=== PATIENT | male | born 1950 | race Caucasian/White ===

== ENCOUNTER 2016-11-22 18:12 | Emergency (ER) | payer MEDICARE, OTHER ==
[~2016-11-22] VITALS: Ht 182.9 cm; Wt 95.5 kg
[~2016-11-22 18:12] MED LIST: ACIFEX PO; AMOX1TAB61 PO; ATOR20TA PO; ATOR40TA PO; ATOR40TA59 PO; CEFU250T PO; CHOL2000 PO; CIPR500T94 PO; DOCU100T11 PO; FERR-26 PO; FURO40TA4 PO; INSU100I13 SQ; INSU100I17 SQ; INSU100I27 SQ; INSU100V13 SQ; INSU100V31 SQ; LEVO150T5 PO; LISI1TAB7 PO; LISI40TA PO; MAG DELAY64 MG PO; METF500T4 PO; NADO20TA PO; OMEP20TA63 PO; OXYC-323 PO; OXYC10TA PO; Promethazine Hcl/Codeine PO; RIFA550T PO; SIMV20TA PO; SPIR100T2 PO; SPIR25TA3 PO; TEMA15CA PO; [UNRECOGNIZED DRUG - CODE] IV
[2016-11-22] MEDS ORDERED: FUROSEMIDE 40 MG/4 ML VIAL IVP ONE (18:30)
[2016-11-22] MEDS ORDERED: ASPIRIN 81 MG TAB.CHEW PO ONE (18:30)
--- NOTE | 2016-11-22 18:39 | EKG ---
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
[2016-11-22 18:47] LABS: BASO % 0 % (0-3); EOS # 0.1 x10^3/uL (0.0-0.7); EOS % 1 % (0-3); HEMATOCRIT 39.2 % (39.0-53.0); HEMOGLOBIN 13.7 g/dL (13.0-17.5); LYMPH # 0.9 x10^3/uL (1.0-4.8); LYMPH % 9 % (24-48); MEAN CORPUSCULAR HEMOGLOBIN 32 pg (25-35); MEAN CORPUSCULAR HGB CONC 35 g/dL (31-37); MEAN CORPUSCULAR VOLUME 90 fL (79-100); MONO % 10 % (0-9); NEUT # 7.6 x10^3uL (1.8-7.7); NEUT % 79 % (31-73); PLATELET COUNT 135 x10^3/uL (140-400); RED BLOOD COUNT 4.33 x10^6/uL (4.30-5.70); RED CELL DISTRIBUTION WIDTH 17.3 % (11.5-14.5); WHITE BLOOD COUNT 9.6 x10^3/uL (4.0-11.0)
[2016-11-22 19:11] LABS: ALBUMIN 3.5 g/dL (3.4-5.0); CALCIUM 8.7 mg/dL (8.5-10.1); CREATININE 1.3 mg/dL (0.7-1.3); GFR 54.9; POTASSIUM 5.3 mmol/L (3.5-5.1); TOTAL BILIRUBIN 1.2 mg/dL (0.2-1.0)
--- NOTE | 2016-11-22 19:13 | RAD ---
PROCEDURE CT chest without intravenous contrast. HISTORY Shortness of air, effusion. TECHNIQUE Noncontrast CT of the chest was performed. Exposure: One or more of the following individualized dose reduction techniques were utilized for this examination: 1. Automated exposure control. 2. Adjustment of the mA and/or kV according to patient size. 3. Use of iterative reconstruction technique. COMPARISON CT chest June 06, 2016. FINDINGS Visualized thyroid is small, but symmetric. Trachea and mainstem bronchi appear patent. No convincing mediastinal lymphadenopathy is seen. Thoracic aorta have normal caliber. Coronary artery calcifications are present. Heart and pericardium are unremarkable. Right lung appears clear. There is a large left pleural effusion which has increased in size from previous study. Much of left lung demonstrates consolidation, favored to be atelectasis, although it would be difficult to exclude airspace disease, nodule, or mass within the suspected atelectatic lung. Moderate-severe gynecomastia is present. There is a mildly distracted left posterolateral 7th rib fracture, age indeterminate. Images of the upper abdomen demonstrate nodular appearance to the liver, compatible with cirrhosis. Ascites is seen. IMPRESSION 1. Large left pleural effusion, increased in size from previous study. Exact cause is not identified, but a consideration would be hepatic hydrothorax given the stigmata of cirrhosis. Electronically signed by: Gerson Haji MD (Nov 22, 2016 19:11:01)
--- NOTE | 2016-11-22 19:28 | PHYS DOC ---
General Chief Complaint: CHEST PAIN Stated Complaint: CHESP PAIN/SOA Time Seen by MD: 18:17 Source: patient, old records Exam Limitations: no limitations Problems: History of Present Illness Initial Comments Pt is 66/M to ED via EMS c/o CP. Pt states L CP (pressure) began 1715 today while watching TV. Moderate, no exacerbating/relieving factors noted. Also with SOB, diaphoresis, L arm tingling/numbness no n/v. No prearrival treatment, sx resolved without treatment pt arrived asymptomatic. ED VS: 98.5, 80, 26, 118/74, 98% RA Pt has h/o ESLD has weekly thoracentesis/paracentesis, is scheduled for this Sunday at [facility]. No prior history of chest pain. Pt says his abdominal distension/discomfort as well as his cough/SOB are at baseline and not affected by CP symptoms. Timing/Duration: 1-3 hours Severity: moderate Modifying Factors: improves with other Associated Symptoms: chest pain, diaphoresis, malaise, shortness of breath, other Allergies: Coded Allergies: Iodinated Contrast Media - IV Dye (Verified Allergy, Intermediate, ) chicken derived (Verified Allergy, Intermediate, 06/20/16) iodine (Verified Allergy, Intermediate, 06/20/16) shellfish derived (Verified Allergy, Intermediate, 08/19/15) Past Medical History Medical History: other (DM, GERD, hypothyroid, end stage liver disease on transplant list follows [facility]) Surgical History: noncontributory Social History Smoker: non-smoker Alcohol: none Drugs: none Review of Systems Constitutional: denies chills, diaphoresis malaise Respiratory: see HPI shortness of breath Cardiovascular: see HPI Gastrointestinal: see HPIdenies diarrhea, denies vomiting Musculoskeletal: denies back pain, denies joint swelling, denies neck pain Psychiatric/Neurological: denies headache, denies numbness, denies paresthesia Physical Exam General Appearance: no apparent distress Eyes: bilateral eye EOMI, bilateral eye PERRL, bilateral eye scleral icterus Ear, Nose, Throat: hearing grossly normal, normal ENT inspection Respiratory: chest non-tender, other (BS absent L lower 1/2, coarse at apex, R is CTA no resp distress) Cardiovascular: normal peripheral pulses, regular rate, rhythm Gastrointestinal: soft (distended/tender diffusely no focality no rebound or mass) Extremities: normal inspection, no pedal edema Neurologic/Psychiatric: 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 HISTORY Shortness of air, effusion. TECHNIQUE Noncontrast CT of the chest was performed. Exposure: One or more of the following individualized dose reduction techniques were utilized for this examination: 1. Automated exposure control. 2. Adjustment of the mA and/or kV according to patient size. 3. Use of iterative reconstruction technique. COMPARISON CT chest June 06, 2016. FINDINGS Visualized thyroid is small, but symmetric. Trachea and mainstem bronchi appear patent. No convincing mediastinal lymphadenopathy is seen. Thoracic aorta have normal caliber. Coronary artery calcifications are present. Heart and pericardium are unremarkable. Right lung appears clear. There is a large left pleural effusion which has increased in size from previous study. Much of left lung demonstrates consolidation, favored to be atelectasis, although it would be difficult to exclude airspace disease, nodule, or mass within the suspected atelectatic lung. Moderate-severe gynecomastia is present. There is a mildly distracted left posterolateral 7th rib fracture, age indeterminate. Images of the upper abdomen demonstrate nodular appearance to the liver, compatible with cirrhosis. Ascites is seen. IMPRESSION 1. Large left pleural effusion, increased in size from previous study. Exact cause is not identified, but a consideration would be hepatic hydrothorax given the stigmata of cirrhosis. Electronically signed by: Gerson Hylton MD (Nov 22, 2016 19:11:01) DICTATED AND SIGNED BY: GERSON HYLTON MD DATE: 11/22/161910 CC: CAMMIE HARRIS MD; EB FRANCO DO ~ Pertinent labs: plt 135, na 126, K+ 5.3, BUN 32, Cr 1.3, glu 175, t. 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 Due to comorbidities, requested pt be transferred to [facility]. 1953: Pt discussed with Dr Anusha Reyes [facility] who accepts tele/obs admission to [facility]/ [facility] [place]. IMPRESSIONS: Chest pain ESLD w/ascites and effusion hyponatremia hyperkalemia Departure Time of Disposition: 20:01 Disposition: 05 XFER OTHER Diagnosis: chest pain, ESLD Condition: STABLE Additional Instructions: EMS transfer to [facility] for obs/tele admission Dr Anusha Reyes is accepting. EB FRANCO DO Nov 22, 2016 19:28
[2016-11-22 20:40] VITALS: BP 106/75
[2016-11-22 21:11] LABS: AMPHETAMINE/METHAMPHETAMINE NEG (NEG); BARBITURATES NEG (NEG); BENZODIAZEPINES POS (NEG); CANNABINOIDS NEG (NEG); COCAINE NEG (NEG); METHADONE NEG (NEG); OPIATES NEG (NEG); PHENCYCLIDINE NEG (NEG)
[2016-11-22 21:29] LABS: BILIRUBIN,URINE NEG (NEG); CLARITY,URINE HAZY; COLOR,URINE YELLOW; GLUCOSE,URINE NEG (NEG); UROBILINOGEN,URINE 0.2 mg/dL (0.2 mg/dL)
[2016-11-22 21:30] LABS: BACTERIA,URINE 0 /HPF (0-FEW); NITRITE,URINE NEG (NEG); RBC,URINE 0 /HPF (0-2); SQUAMOUS EPITHELIAL CELL,UR FEW /LPF; WBC,URINE OCC /HPF (0-4)
--- NOTE | 2016-11-23 08:44 | RAD ---
Chest, 2 views, 11/22/2016: History: Chest pain, shortness of breath Comparison is made to a study from 10/12/2016. There is a prominent opacity in the left lower chest compatible with a large pleural effusion. Similar findings were present on the previous study. There is considerable underlying atelectasis in the left parahilar region. The left heart border is obscured by the pleural fluid. The pulmonary vascularity appears to be within normal limits. The right chest is clear. No right-sided pleural fluid is evident. There is deformity of the posterolateral aspect of the right seventh rib compatible with a slightly displaced rib fracture. This appears to have been present in retrospect on the 10/12/2016 study but was not evident on older exams. There is also a fracture of the left seventh rib laterally. These fractures were not present on the 06/06/2016 CT study. IMPRESSION: 1. Large ongoing or recurrent left pleural effusion with considerable underlying atelectasis. 2. Subacute bilateral seventh rib fractures.
== END 2016-11-22 20:51 | disposition short-term general hospital (02) ==
LOC: ER 18:12
DX: R07.89 Other chest pain (principal); E87.1 Hypo-osmolality and hyponatremia; E87.5 Hyperkalemia; K21.9 Gastro-esophageal reflux disease without esophagitis; E11.9 Type 2 diabetes mellitus without complications; K72.90 Hepatic failure, unspecified without coma; Z91.041 Radiographic dye allergy status; Z91.013 Allergy to seafood; Z91.018 Allergy to other foods
CPT/HCPCS: 36415; 71020; 71250; 80053; 81001; 82550; 83880; 84484; 85027; 85610; 85730; 93005; 99285; G0481

== ENCOUNTER 2017-02-10 11:56 | Emergency (ER) | payer MEDICARE, OTHER ==
[~2017-02-10] VITALS: Ht 182.9 cm; Wt 81.6 kg
[~2017-02-10 11:56] MED LIST changes: -RIFA550T PO; +RIFA550T4 PO; +[UNRECOGNIZED DRUG - CODE] IV; -[UNRECOGNIZED DRUG - CODE] IV
[2017-02-10 12:21] LABS: BASO # 0.1 x10^3/uL (0.0-0.2); BASO % 1 % (0-3); EOS # 0.1 x10^3/uL (0.0-0.7); EOS % 1 % (0-3); HEMOGLOBIN 11.8 g/dL (13.0-17.5); LYMPH # 0.5 x10^3/uL (1.0-4.8); LYMPH % 7 % (24-48); MEAN CORPUSCULAR HEMOGLOBIN 32 pg (25-35); MEAN CORPUSCULAR HGB CONC 36 g/dL (31-37); MEAN CORPUSCULAR VOLUME 89 fL (79-100); MONO # 0.8 x10^3/uL (0.0-1.1); MONO % 12 % (0-9); NEUT # 5.1 x10^3uL (1.8-7.7); NEUT % 79 % (31-73); PLATELET COUNT 113 x10^3/uL (140-400); RED CELL DISTRIBUTION WIDTH 16.4 % (11.5-14.5); WHITE BLOOD COUNT 6.5 x10^3/uL (4.0-11.0)
[2017-02-10] MEDS ORDERED: IPRATRPIUM/ALBUTEROL 0.5/2.5MG 3 ML NEBU. NEB ONE (12:30)
--- NOTE | 2017-02-10 12:38 | RAD ---
Indication: Shortness of breath. Time of exam 12:24 PM Comparison is made with prior exam from 11/22/2016. Large left effusion persists. The right lung is clear. There is no pneumothorax. Impression: Similar appearance to prior exam from 11/22/2016 with continued large left pleural effusion.
[2017-02-10 12:41] LABS: ALBUMIN 3.2 g/dL (3.4-5.0); CALCIUM 8.5 mg/dL (8.5-10.1); CREATININE 1.4 mg/dL (0.7-1.3); DIRECT BILIRUBIN 0.2 mg/dL (0.0-0.2); GFR 50.4; POTASSIUM 4.9 mmol/L (3.5-5.1); TOTAL PROTEIN 6.1 g/dL (6.4-8.2)
--- NOTE | 2017-02-10 13:58 | PHYS DOC ---
Past History Past Medical History: Diabetes, GERD, Hypothyroid, Liver Disease Past Surgical History: Pneumothorax, Other Alcohol Use: None Drug Use: None Adult General Chief Complaint Chief Complaint: SHORTNESS OF BREATH HPI HPI 66-year-old male presenting to the emergency department today with worsening shortness of breath and a history of liver failure with a meld score in the low to mid 20s generally. He reports having a paracentesis on however over the past 2 days his abdomen has been increasingly distended with worsening shortness of breath and feels like there is "fluid on his lungs". Onset 2-3 days. Location lungs and abdomen. Duration intermittent. Worse with walking. Review of systems was positive for shortness of breath and abdominal distention. Negative for abdominal pain or chest pain. All other review of systems is negative unless otherwise noted in history of present illness. Pertinent physical exam findings show the patient has ecchymosis around the abdomen and generally over his body seems to bruise easily. Abdomen is soft and nontender. Patient has liver cirrhosis syndromic appearance. Abdomen is distended with fluid wave. Nontender without rebound tenderness. Lungs have crackles in the bases worse on the left than the right. ED course: 66-year-old male presenting to the emergency department with worsening fluid retention likely secondary to liver failure. Patient was saturating well resting in the exam room however when he exerts himself he gets quite short of breath. He has a relatively high meld score and is currently awaiting liver transplant. Labs were obtained and meld score calculated approximately similar to previous to his creatinine is slightly higher than previous. Given the patient's clinical presentation, the patient was then admitted to the [facility] as a direct admission for further evaluation workup and care. The patient likely will need both a paracentesis and thoracentesis. He was transferred by ambulance. Patient was comfortable with plan. Accepting dr. srinath richard. Review of Systems Review of Systems SEE ABOVE. Current Medications Current Medications Current Medications Medications (Trade) Dose Ordered Sig/Hermann Start Time Stop Time Status Last Admin Dose Admin Albuterol/ Ipratropium (Duoneb) 3 ml 1X ONCE 02/10/17 12:30 02/10/17 12:32 DC 02/10/17 12:35 3 ML Allergies Allergies Allergies Coded Allergies Type Severity Reaction Last Updated Verified Iodinated Contrast Media - IV Dye Allergy Intermediate 07/28/14 Yes chicken derived Allergy Intermediate 06/20/16 Yes iodine Allergy Intermediate 06/20/16 Yes shellfish derived Allergy Intermediate 08/19/15 Yes Physical Exam Physical Exam Constitutional: Well developed, well nourished, no acute distress, non-toxic appearance. HENT: Normocephalic, atraumatic, bilateral external ears normal, oropharynx moist, no oral exudates, nose normal. [] Eyes: PERRLA, EOMI, conjunctiva normal, no discharge. Neck: Normal range of motion, no tenderness, supple, no stridor. Cardiovascular:Heart rate regular rhythm, no murmur [] Lungs & Thorax: see above Abdomen: see above Skin: Warm, dry, no erythema, no rash. Back: No tenderness, no CVA tenderness. [] Extremities: No tenderness, no cyanosis, no clubbing, ROM intact, no edema. Neurologic: Alert and oriented X 3, normal motor function, normal sensory function, no focal deficits noted. [] Psychologic: Affect normal, judgement normal, mood normal. Current Patient Data Vital Signs Vital Signs Date Time Temp Pulse Resp B/P (MAP) Pulse Ox O2 Delivery O2 Flow Rate FiO2 02/10/17 13:02 92 16 96/70 (79) 99 Room Air 02/10/17 12:05 97.9 Lab Results Laboratory Tests Test 02/10/17 12:05 White Blood Count 6.5 x10^3/uL (4.0-11.0) Red Blood Count 3.70 x10^6/uL (4.30-5.70) L Hemoglobin 11.8 g/dL (13.0-17.5) L Hematocrit 33.0 % (39.0-53.0) L Mean Corpuscular Volume 89 fL (79-100) Mean Corpuscular Hemoglobin 32 pg (25-35) Mean Corpuscular Hemoglobin Concent 36 g/dL (31-37) Red Cell Distribution Width 16.4 % (11.5-14.5) H Platelet Count 113 x10^3/uL (140-400) L Neutrophils (%) (Auto) 79 % (31-73) H Lymphocytes (%) (Auto) 7 % (24-48) L Monocytes (%) (Auto) 12 % (0-9) H Eosinophils (%) (Auto) 1 % (0-3) Basophils (%) (Auto) 1 % (0-3) Neutrophils # (Auto) 5.1 x10^3uL (1.8-7.7) Lymphocytes # (Auto) 0.5 x10^3/uL (1.0-4.8) L Monocytes # (Auto) 0.8 x10^3/uL (0.0-1.1) Eosinophils # (Auto) 0.1 x10^3/uL (0.0-0.7) Basophils # (Auto) 0.1 x10^3/uL (0.0-0.2) Sodium Level 128 mmol/L (136-145) L Potassium Level 4.9 mmol/L (3.5-5.1) Chloride Level 95 mmol/L (98-107) L Carbon Dioxide Level 26 mmol/L (21-32) Anion Gap 7 (6-14) Blood Urea Nitrogen 33 mg/dL (8-26) H Creatinine 1.4 mg/dL (0.7-1.3) H Estimated GFR (Cockcroft-Gault) 50.4 Glucose Level 78 mg/dL (70-99) Calcium Level 8.5 mg/dL (8.5-10.1) Total Bilirubin 1.0 mg/dL (0.2-1.0) Direct Bilirubin 0.2 mg/dL (0.0-0.2) Aspartate Amino Transferase (AST) 35 U/L (15-37) Alanine Aminotransferase (ALT) 43 U/L (16-63) Alkaline Phosphatase 58 U/L (46-116) Troponin I Quantitative < 0.017 ng/mL (0-0.055) FJ-Cik-X-Type Natriuretic Peptide 332 pg/mL (0-124) H Total Protein 6.1 g/dL (6.4-8.2) L Albumin 3.2 g/dL (3.4-5.0) L Lipase 313 U/L (73-393) EKG EKG [] Radiology/Procedures Radiology/Procedures [] Course & Med Decision Making Course & Med Decision Making Pertinent Labs and Imaging studies reviewed. (See chart for details) [] Dragon Disclaimer Dragon Disclaimer This chart was dictated in whole or in part using Voice Recognition software in a busy, high-work load, and often noisy Emergency Department environment. It may contain unintended and wholly unrecognized errors or omissions. Departure Departure: Impression: Primary Impression: Liver failure Additional Impressions: Pleural effusion on left Shortness of breath Disposition: 02 XFER [facility] ([facility] Condition: STABLE Referrals: CAMMIE HARRIS MD (PCP) Problem Qualifiers Primary Impression: Liver failure Liver failure chronicity: subacute Hepatic coma status: without hepatic coma Qualified Codes: K72.00 - Acute and subacute hepatic failure without coma JACKY MENDOZA MD Feb 10, 2017 13:58
[2017-02-10 15:02] VITALS: BP 102/65
--- NOTE | 2017-02-10 16:20 | EKG ---
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
== END 2017-02-10 15:35 | disposition short-term general hospital (02) ==
LOC: ER 11:56
DX: K72.90 Hepatic failure, unspecified without coma (principal); J90 Pleural effusion, not elsewhere classified; K21.9 Gastro-esophageal reflux disease without esophagitis; E11.9 Type 2 diabetes mellitus without complications; E03.9 Hypothyroidism, unspecified; J95.811 Postprocedural pneumothorax; Z91.041 Radiographic dye allergy status; Z91.013 Allergy to seafood; Z91.018 Allergy to other foods
CPT/HCPCS: 36415; 71010; 80048; 80076; 83690; 83880; 84484; 85027; 85610; 85730; 93005; 94640; 99285; J7620

== ENCOUNTER 2018-04-07 15:35 | Inpatient (IN) | payer MEDICARE, OTHER ==
[~2018-04-07] VITALS: Ht 182.9 cm; Wt 83.9 kg
[~2018-04-07 15:35] MED LIST changes: -FERR-26 PO; +FERR325T14 PO; -METF500T4 PO; +METF500T5 PO; -SPIR100T2 PO; +SPIR100T4 PO; -SPIR25TA3 PO; +SPIR25TA5 PO; +VANC1.5P20 IV; -[UNRECOGNIZED DRUG - CODE] IV
--- NOTE | 2018-04-07 15:47 | ED.ADGEN ---
Past History Past Medical History: Diabetes, GERD, Hypothyroid, Liver Disease (GERMÁN MAYO MD) Past Medical History: Diabetes, GERD, High Cholesterol, Hypothyroid, Renal Failure (DEANNA FERNANDEZ DO) Past Surgical History: Pneumothorax, Other (GERMÁN MAYO MD) Past Surgical History Liver transplant, bile stent s/p bile leak, chest tube due to pneumothorax (DEANNA FERNANDEZ DO) Alcohol Use: None Drug Use: None (GERMÁN MAYO MD) Alcohol Use: None Drug Use: None (DEANNA FERNANDEZ DO) Adult General Chief Complaint Chief Complaint Lightheadedness shortness of breath abdominal pain after defecation (GERMÁN MAYO MD) HPI HPI Patient had a liver transplant May 2017 at . Two weeks after liver transplant , patient had episode of abdominal pain similar to his presenting complaint today that showed a bile leak and biliary infection. Since then, he was well until this afternoon 20 minutes prior to presentation when after defecating, he had sudden onset of lightheadedness with near syncope , abdominal pain, numbness in his hands and legs with shortness of breath. Patient denied any chest pain. EMS was called by his . Since then, his abdominal pain and shortness of breath has improved (GERMÁN MAYO MD) Review of Systems Review of Systems Constitutional: Denies fever or chills Eyes: Denies change in visual acuity, redness, or eye pain HENT: Denies nasal congestion or sore throat Respiratory: Denies cough or shortness of breath Cardiovascular: Denies chest pain or palpitations GI: with diffuse abdominal pain, nausea, no vomiting, bloody stools or diarrhea : Denies dysuria or hematuria Musculoskeletal: Denies back pain or joint pain Integument: Denies rash or skin lesions Neurologic: Denies headache, but with severe light headedness with numbness in all extremities Endocrine: Denies polyuria or polydipsia All other systems were reviewed and found to be within normal limits, except as documented in this note. (GERMÁN MAYO MD) Current Medications Current Medications Current Medications Medications (Trade) Dose Ordered Sig/Hermann Start Time Stop Time Status Last Admin Dose Admin Aspirin (Children'S Aspirin) 324 mg 1X ONCE 04/07/18 19:15 04/07/18 19:16 DC 04/07/18 19:25 324 MG Dextrose 12.5 gm PRN Q15MIN PRN 04/07/18 19:15 Insulin Human Lispro (HumaLOG) 0-5 UNITS TIDWMEALS 04/08/18 08:00 Ondansetron HCl (Zofran) 4 mg PRN Q8HRS PRN 04/07/18 19:15 Sodium Chloride 1,000 ml @ 100 mls/hr Q10H 04/07/18 19:30 (DEANNA FERNANDEZ DO) Allergies Allergies Allergies Coded Allergies Type Severity Reaction Last Updated Verified Iodinated Contrast Media - IV Dye Allergy Intermediate 07/28/14 Yes chicken derived Allergy Intermediate 06/20/16 Yes iodine Allergy Intermediate 06/20/16 Yes shellfish derived Allergy Intermediate 08/19/15 Yes (DEANNA FERNANDEZ DO) Physical Exam Physical Exam Constitutional: Well developed, well nourished, no acute distress, non-toxic appearance. HENT: Normocephalic, atraumatic, bilateral external ears normal, oropharynx moist, no oral exudates, nose normal. Eyes: PERRLA, EOMI, conjunctiva normal, no discharge. Neck: Normal range of motion, no tenderness, supple, no stridor. Cardiovascular:Heart rate regular rhythm, no murmur Lungs & Thorax: Bilateral breath sounds clear to auscultation Abdomen: Bowel sounds normal, soft, no tenderness, no masses, no pulsatile masses. Skin: Warm, dry, no erythema, no rash. Back: No tenderness, no CVA tenderness. Extremities: No tenderness, no cyanosis, no clubbing, ROM intact, no edema. Neurologic: Alert and oriented X 3, normal motor function, normal sensory function, no focal deficits noted. Gait normal Psychologic: Affect normal, judgement normal, mood normal. (GERMÁN MAYO MD) Physical Exam Constitutional: Well developed, well nourished, no acute distress, non-toxic appearance. [] HENT: Normocephalic, atraumatic, oropharynx moist, Eyes: PERRL, EOMI, conjunctiva normal, Neck: Normal range of motion, no tenderness, supple, no stridor. [] Cardiovascular: Heart rate regular rhythm, CR < 2 sec Lungs & Thorax: Bilateral breath sounds clear to auscultation, no wheezing or rales noted Abdomen: Soft, no tenderness, no masses, no pulsatile masses. [] Skin: Warm, dry, no erythema, no rash. [] Extremities: No tenderness, no cyanosis, ROM intact, no edema. [] Neurologic: Alert and oriented X 3, normal motor function, normal sensory function, no focal deficits noted. [] Psychologic: Affect normal, judgement normal, mood normal. [] (FERNANDEZ,DEANNA R DO) Current Patient Data Vital Signs Vital Signs Date Time Temp Pulse Resp B/P (MAP) Pulse Ox O2 Delivery O2 Flow Rate FiO2 04/07/18 18:39 76 16 125/71 (89) 98 Room Air 04/07/18 15:40 98.0 (FERNANDEZ,DEANNA R DO) Lab Results Laboratory Tests Test 04/07/18 16:30 04/07/18 16:40 04/07/18 17:30 White Blood Count 3.9 x10^3/uL (4.0-11.0) L Red Blood Count 3.83 x10^6/uL (4.30-5.70) L Hemoglobin 10.3 g/dL (13.0-17.5) L Hematocrit 28.9 % (39.0-53.0) L Mean Corpuscular Volume 75 fL (79-100) L Mean Corpuscular Hemoglobin 27 pg (25-35) Mean Corpuscular Hemoglobin Concent 36 g/dL (31-37) Red Cell Distribution Width 15.0 % (11.5-14.5) H Platelet Count 100 x10^3/uL (140-400) L Neutrophils (%) (Auto) 81 % (31-73) H Lymphocytes (%) (Auto) 9 % (24-48) L Monocytes (%) (Auto) 8 % (0-9) Eosinophils (%) (Auto) 1 % (0-3) Basophils (%) (Auto) 1 % (0-3) Neutrophils # (Auto) 3.2 x10^3uL (1.8-7.7) Lymphocytes # (Auto) 0.3 x10^3/uL (1.0-4.8) L Monocytes # (Auto) 0.3 x10^3/uL (0.0-1.1) Eosinophils # (Auto) 0.0 x10^3/uL (0.0-0.7) Basophils # (Auto) 0.0 x10^3/uL (0.0-0.2) Prothrombin Time 10.0 SEC (9.4-11.4) Prothrombin Time INR 1.0 (0.9-1.1) D-Dimer (Kelly) 1.65 mg/L (0.00-0.50) H Sodium Level 137 mmol/L (136-145) Potassium Level 4.8 mmol/L (3.5-5.1) Chloride Level 104 mmol/L (98-107) Carbon Dioxide Level 23 mmol/L (21-32) Anion Gap 10 (6-14) Blood Urea Nitrogen 29 mg/dL (8-26) H Creatinine 2.2 mg/dL (0.7-1.3) H Estimated GFR (Cockcroft-Gault) 29.8 BUN/Creatinine Ratio 13 (6-20) Glucose Level 278 mg/dL (70-99) H Calcium Level 8.6 mg/dL (8.5-10.1) Total Bilirubin 0.4 mg/dL (0.2-1.0) Aspartate Amino Transferase (AST) 25 U/L (15-37) Alanine Aminotransferase (ALT) 54 U/L (16-63) Alkaline Phosphatase 104 U/L (46-116) Troponin I Quantitative < 0.017 ng/mL (0-0.055) BJ-Aka-D-Type Natriuretic Peptide 300 pg/mL (0-124) H Total Protein 6.8 g/dL (6.4-8.2) Albumin 3.5 g/dL (3.4-5.0) Albumin/Globulin Ratio 1.1 (1.0-1.7) Lipase 169 U/L (73-393) Urine Collection Type Unknown Urine Color Yellow Urine Clarity Clear Urine pH 5.5 Urine Specific Sedley 1.015 Urine Protein 30 mg/dl (NEG-TRACE) Urine Glucose (UA) >=1000 mg/dL (NEG) Urine Ketones (Stick) Neg mg/dL (NEG) Urine Blood Neg (NEG) Urine Nitrite Neg (NEG) Urine Bilirubin Neg (NEG) Urine Urobilinogen Dipstick 0.2 mg/dL (0.2 mg/dL) Urine Leukocyte Esterase Neg (NEG) Urine RBC Occ /HPF (0-2) Urine WBC 1-4 /HPF (0-4) Urine Squamous Epithelial Cells Few /LPF Urine Bacteria 0 /HPF (0-FEW) Urine Hyaline Casts Few /HPF Urine Mucus Slight /LPF Stool Occult Blood Negative (NEG) (DEANNA FERNANDEZ DO) Lab Results Laboratory Tests Test 04/07/18 16:30 04/07/18 16:40 04/07/18 17:30 White Blood Count 3.9 x10^3/uL (4.0-11.0) L Red Blood Count 3.83 x10^6/uL (4.30-5.70) L Hemoglobin 10.3 g/dL (13.0-17.5) L Hematocrit 28.9 % (39.0-53.0) L Mean Corpuscular Volume 75 fL (79-100) L Mean Corpuscular Hemoglobin 27 pg (25-35) Mean Corpuscular Hemoglobin Concent 36 g/dL (31-37) Red Cell Distribution Width 15.0 % (11.5-14.5) H Platelet Count 100 x10^3/uL (140-400) L Neutrophils (%) (Auto) 81 % (31-73) H Lymphocytes (%) (Auto) 9 % (24-48) L Monocytes (%) (Auto) 8 % (0-9) Eosinophils (%) (Auto) 1 % (0-3) Basophils (%) (Auto) 1 % (0-3) Neutrophils # (Auto) 3.2 x10^3uL (1.8-7.7) Lymphocytes # (Auto) 0.3 x10^3/uL (1.0-4.8) L Monocytes # (Auto) 0.3 x10^3/uL (0.0-1.1) Eosinophils # (Auto) 0.0 x10^3/uL (0.0-0.7) Basophils # (Auto) 0.0 x10^3/uL (0.0-0.2) Prothrombin Time 10.0 SEC (9.4-11.4) Prothrombin Time INR 1.0 (0.9-1.1) D-Dimer (Kelly) 1.65 mg/L (0.00-0.50) H Sodium Level 137 mmol/L (136-145) Potassium Level 4.8 mmol/L (3.5-5.1) Chloride Level 104 mmol/L (98-107) Carbon Dioxide Level 23 mmol/L (21-32) Anion Gap 10 (6-14) Blood Urea Nitrogen 29 mg/dL (8-26) H Creatinine 2.2 mg/dL (0.7-1.3) H Estimated GFR (Cockcroft-Gault) 29.8 BUN/Creatinine Ratio 13 (6-20) Glucose Level 278 mg/dL (70-99) H Calcium Level 8.6 mg/dL (8.5-10.1) Total Bilirubin 0.4 mg/dL (0.2-1.0) Aspartate Amino Transferase (AST) 25 U/L (15-37) Alanine Aminotransferase (ALT) 54 U/L (16-63) Alkaline Phosphatase 104 U/L (46-116) Troponin I Quantitative < 0.017 ng/mL (0-0.055) HZ-Cdh-D-Type Natriuretic Peptide 300 pg/mL (0-124) H Total Protein 6.8 g/dL (6.4-8.2) Albumin 3.5 g/dL (3.4-5.0) Albumin/Globulin Ratio 1.1 (1.0-1.7) Lipase 169 U/L (73-393) Urine Collection Type Unknown Urine Color Yellow Urine Clarity Clear Urine pH 5.5 Urine Specific Sedley 1.015 Urine Protein 30 mg/dl (NEG-TRACE) Urine Glucose (UA) >=1000 mg/dL (NEG) Urine Ketones (Stick) Neg mg/dL (NEG) Urine Blood Neg (NEG) Urine Nitrite Neg (NEG) Urine Bilirubin Neg (NEG) Urine Urobilinogen Dipstick 0.2 mg/dL (0.2 mg/dL) Urine Leukocyte Esterase Neg (NEG) Urine RBC Occ /HPF (0-2) Urine WBC 1-4 /HPF (0-4) Urine Squamous Epithelial Cells Few /LPF Urine Bacteria 0 /HPF (0-FEW) Urine Hyaline Casts Few /HPF Urine Mucus Slight /LPF Stool Occult Blood Negative (NEG) (GERMÁN MAYO MD) EKG EKG [] (GERMÁN MAYO MD) EKG NSR at 72bpm, NO ST elevation, nonspecific t wave from 1926 at 04/07/18 (DEANNA FERNANDEZ DO) Radiology/Procedures Radiology/Procedures [address] [address] IMAGING REPORT Signed PATIENT: DEANNA GONZALEZ ACCOUNT: [id number] : 1950 LOCATION: ER AGE: 67 SEX: M EXAM STATUS: PRE ER ORD. PHYSICIAN: GERMÁN MAYO MD REASON: SOB PROCEDURE: CHEST AP ONLY KUB, CHEST AP ONLY Clinical History: short of breath with abd pain x 1 day, hx of liver transplant 2015 One view chest: Technique: AP view of the chest was obtained at 04/07/2018 3:59 PM. Comparison: February 10, 2017. Findings: The cardiomediastinal silhouette is normal. The pulmonary vasculature is normal. There is density in the left costophrenic angle. There is an old rib fracture on the right. Impression: Mild left effusion. End impression 1 view abdomen pelvis: There is air in portions the colon. There is a paucity small bowel gas. There is no free air. There are multiple surgical clips in the upper abdomen. IMPRESSION: Nonobstructive bowel gas pattern. Electronically signed by: Mita Owens III, MD (04/07/2018 4:11 PM) [facility] DICTATED AND SIGNED BY: MITA OWENS III, MD DATE: 04/07/18 1606 CC: CAMMIE HARRIS MD; GERMÁN MAYO MD ~ (GERMÁN MAYO MD) Radiology/Procedures KUB, CHEST AP ONLY Clinical History: short of breath with abd pain x 1 day, hx of liver transplant 2015 One view chest: Technique: AP view of the chest was obtained at 04/07/2018 3:59 PM. Comparison: February 10, 2017. Findings: The cardiomediastinal silhouette is normal. The pulmonary vasculature is normal. There is density in the left costophrenic angle. There is an old rib fracture on the right. Impression: Mild left effusion. End impression 1 view abdomen pelvis: There is air in portions the colon. There is a paucity small bowel gas. There is no free air. There are multiple surgical clips in the upper abdomen. IMPRESSION: Nonobstructive bowel gas pattern. Electronically signed by: Mita Owens III, MD (04/07/2018 4:11 PM) [facility] DICTATED AND SIGNED BY: MITA OWENS III, MD DATE: 04/07/18 1608 PROCEDURE: CT HEAD WO CONTRAST PQRS Compliance Statement: One or more of the following individualized dose reduction techniques were utilized for this examination: 1. Automated exposure control 2. Adjustment of the mA and/or kV according to patient size 3. Use of iterative reconstruction technique CT head without contrast 04/07/2018 7:05 PM INDICATION: Near syncope COMPARISON: CT head July 28, 2014 TECHNIQUE: Multiple axial CT images of the head were obtained from skull base through the vertex without intravenous contrast. FINDINGS: Head: Ventricles, sulci and basal cisterns are within normal limits. There is no hydrocephalus. Stock-white matter differentiation is normal. There is no acute intracranial hemorrhage. There is no mass, mass effect or midline shift. Posterior fossa is normal in appearance. Visualized portions of the orbits are normal. Paranasal sinuses are well aerated. Mastoid air cells are well aerated. Scalp and calvaria are normal. IMPRESSION: No acute intracranial hemorrhage. Electronically signed by: Rianna Garcia MD (04/07/2018 7:20 PM) [facility] (DEANNA FERNANDEZ DO) Course & Med Decision Making Course & Med Decision Making Patient presents with lightheadedness abdominal pain paresthesias after large bowel movement DDx-vasovagal reaction, Vasovagal syncope, Arrhythmia, hypotension, gas intestinal hemorrhage Patient was stable in the emergency department improved after observation. Labs remarkable for elevated BUN/Cr, hyperglycemia, elevated BNP, anemia. ECG and troponin showed no evidence of ACS. CXR and KUB unremarkable. D-dimer elevated V/Q scan ordered. 17:40 Patient is back to baseline without any complaints. Repeat abdominal exam is benign there is no tenderness. Rectal exam noted no melena. There is dark brown stool in the vault 18:[address] Fernandez for further disposition, V/Q scan pending. (GERMÁN MAYO MD) Course & Med Decision Making 1800- Signout received from Dr. Mayo for patient with near syncopal episode associated with defecation. Patient subsequently felt very short of breath and had numbness and tingling. Patient does have significant risk factors including history of prior liver transplant. Patient reports interval improvement of symptoms. Labs reviewed and posted to chart. D-dimer elevated. Patient cannot obtain CT angiogram due to allergy to dye and renal dysfunction. VQ scan ordered and pending. Chest x-ray and KUB without significant abnormality. Patient reports he has known pleural effusions. Patient seen and evaluated by myself. Patient neurologically intact. Denies any trauma. Denies any chest pain. Vital signs currently stable. CT head without acute process. EKG stable. ASA provided. Given risk factors and need for further evaluation and treatment elected to admit patient. Discussed with Dr. Auugstine (hospitalist) who is in agreement with admission. VQ scan pending and serial troponins ordered. Discussed findings and plan with patient and family, who acknowledge understanding and agreement. (DEANNA FERNANDEZ DO) Final Impression Final Impression Clinical Impression Dyspnea Near Syncope Status post Liver transplant (GERMÁN MAYO MD) Dragon Disclaimer Dragon Disclaimer This electronic medical record was generated, in whole or in part, using a voice recognition dictation system. (GERMÁN MAYO MD) Dragon Disclaimer [employer], voice recognition software, utilized. (DEANAN FERNANDEZ DO) Departure Departure: Impression: Primary Impression: Near syncope Additional Impressions: Dyspnea Qualified Codes: R06.00 - Dyspnea, unspecified History of liver transplant Disposition: ADMITTED INPATIENT Admitting Physician: Other (Dr. Augustine) (DEANNA FERNANDEZ DO) Condition: STABLE GERMÁN MAYO MD Apr 07, 2018 15:47 DEANNA FERNANDEZ DO Apr 07, 2018 19:00
--- NOTE | 2018-04-07 16:14 | RAD ---
KUB, CHEST AP ONLY Clinical History: short of breath with abd pain x 1 day, hx of liver transplant 2016 One view chest: Technique: AP view of the chest was obtained at 04/07/2018 3:59 PM. Comparison: February 10, 2017. Findings: The cardiomediastinal silhouette is normal. The pulmonary vasculature is normal. There is density in the left costophrenic angle. There is an old rib fracture on the right. Impression: Mild left effusion. End impression 1 view abdomen pelvis: There is air in portions the colon. There is a paucity small bowel gas. There is no free air. There are multiple surgical clips in the upper abdomen. IMPRESSION: Nonobstructive bowel gas pattern. Electronically signed by: Jimbo Marsh III, MD (04/07/2018 4:11 PM) [facility]
[2018-04-07 16:52] LABS: BASO % 1 % (0-3); EOS % 1 % (0-3); HEMATOCRIT 28.9 % (39.0-53.0); HEMOGLOBIN 10.3 g/dL (13.0-17.5); LYMPH # 0.3 x10^3/uL (1.0-4.8); LYMPH % 9 % (24-48); MEAN CORPUSCULAR HEMOGLOBIN 27 pg (25-35); MEAN CORPUSCULAR HGB CONC 36 g/dL (31-37); MEAN CORPUSCULAR VOLUME 75 fL (79-100); MONO # 0.3 x10^3/uL (0.0-1.1); MONO % 8 % (0-9); NEUT # 3.2 x10^3uL (1.8-7.7); NEUT % 81 % (31-73); PLATELET COUNT 100 x10^3/uL (140-400); RED BLOOD COUNT 3.83 x10^6/uL (4.30-5.70); WHITE BLOOD COUNT 3.9 x10^3/uL (4.0-11.0)
[2018-04-07 17:10] LABS: ALBUMIN 3.5 g/dL (3.4-5.0); ALBUMIN/GLOBULIN RATIO 1.1 (1.0-1.7); CALCIUM 8.6 mg/dL (8.5-10.1); CREATININE 2.2 mg/dL (0.7-1.3); GFR 29.8; POTASSIUM 4.8 mmol/L (3.5-5.1); TOTAL BILIRUBIN 0.4 mg/dL (0.2-1.0); TOTAL PROTEIN 6.8 g/dL (6.4-8.2)
[2018-04-07 17:36] LABS: BILIRUBIN,URINE NEG (NEG); CLARITY,URINE CLEAR; COLOR,URINE YELLOW; GLUCOSE,URINE >=1000 mg/dL (NEG); NITRITE,URINE NEG (NEG); UROBILINOGEN,URINE 0.2 mg/dL (0.2 mg/dL)
[2018-04-07 17:37] LABS: BACTERIA,URINE 0 /HPF (0-FEW); HYALINE CASTS, URINE FEW /HPF; RBC,URINE OCC /HPF (0-2); SQUAMOUS EPITHELIAL CELL,UR FEW /LPF
[2018-04-07 18:16] LABS: FECAL OB PT NEGATIVE (NEG)
[2018-04-07] MEDS ORDERED: ASPIRIN 81 MG TAB.CHEW PO ONE (19:15)
[2018-04-07] MEDS ORDERED: DEXTROSE 50% 25 GM / 50ML DISP.SYRIN. IV PRN (19:15)
[2018-04-07] MEDS ORDERED: ONDANSETRON PF 4 MG/2 ML VIAL. IV PRN (19:15)
--- NOTE | 2018-04-07 19:24 | RAD ---
RS Compliance Statement: One or more of the following individualized dose reduction techniques were utilized for this examination: 1. Automated exposure control 2. Adjustment of the mA and/or kV according to patient size 3. Use of iterative reconstruction technique CT head without contrast 04/07/2018 7:05 PM INDICATION: Near syncope COMPARISON: CT head July 28, 2014 TECHNIQUE: Multiple axial CT images of the head were obtained from skull base through the vertex without intravenous contrast. FINDINGS: Head: Ventricles, sulci and basal cisterns are within normal limits. There is no hydrocephalus. Stock-white matter differentiation is normal. There is no acute intracranial hemorrhage. There is no mass, mass effect or midline shift. Posterior fossa is normal in appearance. Visualized portions of the orbits are normal. Paranasal sinuses are well aerated. Mastoid air cells are well aerated. Scalp and calvaria are normal. IMPRESSION: No acute intracranial hemorrhage. Electronically signed by: Rianna Garcia MD (04/07/2018 7:20 PM) [facility]
[2018-04-07] MEDS ORDERED: IV NORMAL SALINE 1,000ML 1,000 ML IV SCH (19:30)
--- NOTE | 2018-04-07 21:32 | RAD ---
Ventilation/perfusion scintigraphy April 07, 2018 INDICATION: Dyspnea. COMPARISON: Chest radiograph April 07, 2018. TECHNIQUE: Scintigraphic imaging of the chest was performed in regards to ventilation/perfusion imaging. 12 mCi xenon-133 was administered. Perfusion imaging was performed after administration of 5.5 mCi technetium 99m MAA. FINDINGS: There is a left anterior basal segment triple matched defect which corresponds with a small left pleural effusion on chest radiograph. There is no significant trapping of the radiotracer on washout images. There is homogeneous radiotracer uptake on ventilation imaging. IMPRESSION: Findings are compatible with intermediate probability for pulmonary embolism utilizing a modified PIOPED criteria. Electronically signed by: Rianna Garcia MD (04/07/2018 9:29 PM) [facility]
[2018-04-07 23:00] VITALS: BP 140/77
[2018-04-08 05:45] VITALS: BP 122/67
[2018-04-08] MEDS ORDERED: EVER0.5T PO (10:08)
[2018-04-08] MEDS ORDERED: TACR1CAP4 PO (10:08)
[2018-04-08 10:23] VITALS: BP 160/89
[2018-04-08] MEDS: INSULIN LISPRO 300 UNITS/3 ML INSULN.PEN. SQ SCH ×2 (10:39→12:00)
[2018-04-08] MEDS ORDERED: oxyCODONE/APAP 5/325 1 TAB TABLET PO PRN (10:45)
[2018-04-08 10:52] VITALS: BP_SYST 138; BP_SYST 151; BP_DIAS 76; BP_DIAS 78
[2018-04-08 10:53] VITALS: BP 153/82
[2018-04-08 10:55] LABS: HEMATOCRIT 27.4 % (39.0-53.0); HEMOGLOBIN 9.7 g/dL (13.0-17.5); RED BLOOD COUNT 3.63 x10^6/uL (4.30-5.70); RED CELL DISTRIBUTION WIDTH 14.6 % (11.5-14.5); WHITE BLOOD COUNT 2.7 x10^3/uL (4.0-11.0)
[2018-04-08] MEDS ORDERED: LEVOTHYROXINE 100 MCG TABLET PO SCH (11:00)
[2018-04-08] MEDS ORDERED: INSULIN GLARGINE 300 UNITS/3 ML INSULN.PEN. SQ SCH (11:00)
[2018-04-08] MEDS ORDERED: rifAXIMin 550 MG TABLET PO SCH (11:00)
[2018-04-08] MEDS ORDERED: TACROLIMUS 1 MG CAPSULE PO SCH (11:00)
[2018-04-08] MEDS ORDERED: PANTOPRAZOLE 40 MG TABLET. PO SCH (11:00)
[2018-04-08] MEDS ORDERED: FERROUS SULFATE 325 MG TABLET. PO SCH (11:00)
[2018-04-08] MEDS ORDERED: TEMAZEPAM 7.5 MG CAPSULE PO PRN (11:15)
[2018-04-08 11:19] LABS: ALBUMIN 3.1 g/dL (3.4-5.0); ALBUMIN/GLOBULIN RATIO 0.9 (1.0-1.7); CALCIUM 8.6 mg/dL (8.5-10.1); CREATININE 1.7 mg/dL (0.7-1.3); GFR 40.2; TOTAL BILIRUBIN 0.4 mg/dL (0.2-1.0); TOTAL PROTEIN 6.5 g/dL (6.4-8.2)
[2018-04-08] MEDS ORDERED: NON FORMULARY ITEM (Insulin Aspart (Novolog Flexpen) 1 UNIT) SQ SCH (11:30)
[2018-04-08] MEDS ORDERED: metFORMIN 500 MG TABLET PO SCH (11:30)
--- NOTE | 2018-04-08 12:37 | HP ---
ADMIT DATE: 04/07/2018 HISTORY OF PRESENT ILLNESS: The patient is a 67-year-old male patient who came to the Emergency Room complaining of sudden onset of lightheadedness with near syncope, abdominal pain, numbness in his hands and legs with shortness of breath. He denied any chest pain. His called emergency medical service personnel and since then, his abdominal pain and shortness of breath have resolved. Apparently, he had a similar episode of abdominal pain 2 weeks after he has received his liver transplant. At that time, he was found to have bile leak and biliary tract infection. He was extensively investigated in the Emergency Room and he has pancytopenia. His white cell count, hemoglobin, hematocrit, and platelets are all low. His chemistry showed that his BUN is 29, creatinine 2.2 and at least in September 2016 his creatinine at that time was 1.1. On 11/22/2016, his creatinine was 1.3. His D-dimer was elevated to 1.65. However, his prothrombin time and INR are normal and urinalysis was essentially unremarkable. He did have a KUB, which basically showed nonobstructive bowel gas pattern. Chest x-ray showed that the cardiomediastinal silhouette is normal. The pulmonary vasculature is normal. There is density in the left costophrenic angle. He has an old rib fracture on the right and he has mild left-sided pleural effusion. As kidney function is abnormal, he has had a pulmonary ventilation-perfusion scintigraphy, which showed that there is left anterior basal segmental triple matched defects, which corresponds with a small left-sided pleural effusion on chest radiograph. There is no significant trapping of the radiotracer on washout images. There is homogeneous radiotracer uptake on ventilation imaging, finding compatible and intermediate probability for pulmonary embolism utilizing modified pioped criteria. CT scan of the head showed ventricle sulci and basal cisterns are within normal limits. There is no hydrocephalus. Spaulding white matter differentiation is normal. There is no acute intracranial hemorrhage. There is no mass effect or midline shift. The patient was admitted to do also 3 sets of cardiac enzymes. PHYSICAL EXAMINATION: GENERAL: On arrival to the Emergency Room, the patient looked well and was clearly in no apparent respiratory distress. He was pale, but no jaundice, cyanosis, or thyromegaly. No jugular venous distention. No limb edema. VITAL SIGNS: His heart rate was 90, blood pressure 145/75, temperature was 98, respiratory rate was 20 and his oxygen saturation was 100% on room air. HEAD, EYES, EARS, NOSE AND THROAT: Showed normocephalic, atraumatic. NECK: Supple. HEART: Showed normal first and second heart sounds with no gallop, rub or murmur. CHEST: Clear to auscultation. No crepitation or rhonchi. ABDOMEN: Distended, soft, nontender. No guarding or rigidity. No organomegaly. Hernial orifice intact. Bowel sounds normal. NEUROLOGIC: He was awake, alert, responding appropriately. Cranial nerves intact. EXTREMITIES: He moves extremities without difficulty. LABORATORY AND DIAGNOSTIC DATA: On admission showed that serum sodium 137, potassium 4.8, chloride 104, bicarbonate 23, anion gap of 10, BUN 29, creatinine 2.2, estimated GFR was 29 mL per minute. His glucose was 278, calcium was 8.8. Total bilirubin, AST, ALT, alkaline phosphatase were normal. His beta natriuretic peptide was normal at 300. Total protein was 6.8, albumin 3.5. Serum lipase 163. His white cell count was 3900, hemoglobin 10, hematocrit 30, MCV 75, and platelet count of 100,000. His prothrombin time was 10, INR of 1, aPTT 1.65. His urinalysis showed the urine was yellow, clear with a pH of 5.5, specific gravity of 1.015. There was trace of protein, large amount of glucose. The urine was negative for ketones, blood, nitrite and leukocyte esterase. There were occasional rbc's, 1-4 wbc's, no bacteria. His stool for occult blood was negative. His KUB showed that the patient has nonobstructive bowel gas pattern and his chest x-ray showed mild left-sided pleural effusion. CT scan of the head was unremarkable with no acute intracranial hemorrhage and perfusion-ventilation scan of the lung showed that the patient has findings that are compatible with intermediate probability for pulmonary embolism utilizing a modified pioped criteria. MEDICATIONS: He is currently on following medications: He is currently on rifaximin 550 mg p.o. b.i.d., ferrous sulfate 325 mg twice a day, atorvastatin calcium 40 mg at bedtime, spironolactone 25 mg p.o. b.i.d., oxycodone 10 mg 3 times a day. He is also on Percocet 5/325 four times a day as needed. He is on temazepam 7.5 mg at bedtime, furosemide 40 mg daily, omeprazole 20 mg once a day, metformin 500 mg daily. He is on NovoLog FlexPen 3 times a day before meals and Levemir insulin 12 units at bedtime. He is on levothyroxine sodium 100 mcg daily and he is on Zortress 0.5 mg, he takes 4 tablets p.o. b.i.d., tacrolimus for Prograf 1 capsule twice a day. 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 He is also known to have hypothyroidism. PAST SURGICAL HISTORY: Significant for cholecystectomy 2003, liver transplant 2016. He has bilateral total knee arthroplasty, L4-L5 laminectomy and ACL repair of the left knee, meniscectomy of the right knee and anterior cruciate ligament separation of the right knee. ALLERGIES: HE IS ALLERGIC TO SHELLFISH, BEE STING, ADHESIVE TAPES AND IVP DYE. FAMILY HISTORY: He has 2 older sisters and one brother and one sister younger. His brother of cerebral aneurysm rupture at the age of 37. His younger sister at age of 59 because of pancreatic cancer and his other sister at age of 51 because of metastatic lung cancer. The other sister at age of 53 because of complication rheumatoid arthritis. His father at the age of 69 because of pancreatic cancer and mother at age of 93 because of old age. SOCIAL HISTORY: He is , has 2 daughters and 3 sons. He never smoked, does not drink alcohol or recreational drugs. 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 REVIEW OF SYSTEMS: As per history of present illness. ASSESSMENT AND PLAN: The patient was admitted. We will do 2 sets of cardiac enzyme. I will repeat his labs tomorrow. If his serum creatinine is back to normal, we might be able to do a CT angio to confirm or refute the possibility of pulmonary embolism. He apparently has had peripheral neuropathy before in both lower extremities and we will check his orthostatics and decide on further management accordingly. JUDY ADLER MD DR: Stephen JOB#: [id number] / [id number]
[2018-04-08] MEDS ORDERED: oxyCODONE IR 5 MG TABLET PO SCH (14:00)
[2018-04-08] MEDS ORDERED: SPIRONOLACTONE 25 MG TABLET PO SCH (16:00)
[2018-04-08] MEDS ORDERED: EVEROLIMUS PO SCH (21:00)
[2018-04-08] MEDS ORDERED: ATORVASTATIN CALCIUM 20 MG TABLET PO SCH (21:00)
--- NOTE | 2018-04-08 21:51 | DS ---
DATE OF DISCHARGE: 04/08/2018 HOSPITAL COURSE: The patient is a 67-year-old male patient who has had a liver transplant on 05/16/2017, who came to the Emergency Room complaining of abdominal pain, shortness of breath, tingling and numbness in his left arm and his legs. He apparently had a biliary leak shortly after his liver transplant, presented similarly with abdominal pain and was concerned about that; however, in the Emergency Room, he was found to have pancytopenia. His BUN and creatinine were slightly higher at 29 and 2.2 and his D-dimer was high at 1.65. He underwent a pulmonary ventilation perfusion scan, and that was read as an intermediate probability. I did speak with the liver transplant center at [facility] and spoke specifically Yisel, the nurse for Dr. Carlos Hendrix. Apparently, his creatinine has been high since he has received his transplant. They are adjusting his immunosuppressant. About a week ago, his creatinine was 1.95, platelet 140,000 and when he came yesterday, his creatinine was 2.2 and his white cell count was 3.9, that dropped down to 2.7 this morning and his platelet was 140,000 a week ago, this morning was 80,000. I spoke with Dr. Carlos Hendrix and he recommended either to transfer him or seeing him in the clinic and I again spoke with Yisel and the plan is for him to be discharged home and they will call him for an appointment as an outpatient. PHYSICAL EXAMINATION: GENERAL: When I saw him this afternoon, he looked well and was clearly in no apparent respiratory distress, slightly pale, no jaundice, cyanosis, or thyromegaly. No jugular venous distension. No limb edema. VITAL SIGNS: His heart rate was 80, blood pressure 153/82, temperature was 97.6, respiratory rate was 20, and oxygen saturation was 98%. HEAD, EYES, EARS, NOSE AND THROAT: Showed normocephalic, atraumatic. NECK: Supple. HEART: Showed normal first and second heart sounds with no gallop, rub or murmur. CHEST: Clear to auscultation. No crepitation or rhonchi. ABDOMEN: Distended, soft, nontender. NEUROLOGIC: He was awake, alert, responding appropriately. Cranial nerves intact. He moves extremities without difficulty, ambulates without assistance or assistive devices. His intake over the last 24 hours was 480, output was 550. LABORATORY DATA: As of this morning showed a white cell count is down to 2.7, hemoglobin 9.7, hematocrit 27, MCV 76 and platelet count of 80,000. His chemistry this morning showed a serum sodium of 136, potassium 5, chloride 104, bicarbonate 24, anion gap of 8, BUN 28, creatinine 1.7, estimated GFR was 40 mL per minute. His glucose was 184, calcium was 8.6. Total bilirubin, AST, ALT, alkaline phosphatase were normal. His total protein was 6.5, albumin was 3.1. His prothrombin time was 10, INR of 1 and D-dimer was 1.65. Urinalysis showed the urine was yellow, clear with a pH of 5.5, specific gravity of 1.015. There was small amount of protein, large amount of glucose. The urine was negative for ketones, blood, nitrite and leukocyte esterase. There are no rbc's, 1-4 wbc's, no bacteria. DISCHARGE MEDICATIONS: The patient will be discharged home to continue on following medications: Atorvastatin calcium for Lipitor 40 mg at bedtime, Zortress 0.5 mg, takes 4 tablets twice a day, ferrous sulfate 325 mg twice a day, furosemide 40 mg p.o. daily, NovoLog FlexPen 3 times a day before meals, detemir insulin 12 units at bedtime, levothyroxine sodium 100 mcg daily, omeprazole 20 mg daily, metformin 500 mg daily, oxycodone 10 mg 3 times a day, oxycodone/APAP 5/325 one tablet 4 times a day as needed, rifaximin 550 mg twice a day, spironolactone 25 mg b.i.d., tacrolimus for Prograf 1 mg twice a day and temazepam 7.5 mg p.o. at bedtime p.r.n. for insomnia. FINAL DISCHARGE DIAGNOSES: 1. Diarrhea has subsided. 2. Acute kidney injury. Creatinine has dropped down from 2.2-1.7. 3. Pancytopenia, likely due to immunosuppressive therapy. His platelet count dropped from 140-80 thousand. 4. 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 He is also known to have hypothyroidism. The patient will be contacted by the Hepatology Clinic to make an appointment for him to be followed up as an outpatient at [facility]. JUDY ADLER MD DR: IDA/jordyn JOB#: [id number] / [id number]
== END 2018-04-08 14:00 | disposition home or self-care (01) | DRG 682 ==
LOC: ER 15:35 → 1 SOUTH 19:10
PROVIDERS: ADMIT Neuromusculoskeletal Medicine & OMM; ATTEND Neuromusculoskeletal Medicine & OMM
DX: N17.9 Acute kidney failure, unspecified (principal); D61.811 Other drug-induced pancytopenia; Z94.4 Liver transplant status; E03.9 Hypothyroidism, unspecified; E78.00 Pure hypercholesterolemia, unspecified; E11.42 Type 2 diabetes mellitus with diabetic polyneuropathy; Z96.653 Presence of artificial knee joint, bilateral; M19.90 Unspecified osteoarthritis, unspecified site; E11.22 Type 2 diabetes mellitus with diabetic chronic kidney disease; R55 Syncope and collapse; K72.90 Hepatic failure, unspecified without coma; N18.9 Chronic kidney disease, unspecified; K21.9 Gastro-esophageal reflux disease without esophagitis; Z80.0 Family history of malignant neoplasm of digestive organs; Z80.1 Family history of malignant neoplasm of trachea, bronchus and lung; Z87.442 Personal history of urinary calculi; Z90.49 Acquired absence of other specified parts of digestive tract; Z91.041 Radiographic dye allergy status; Z91.013 Allergy to seafood; Z91.018 Allergy to other foods; T45.1X5A Adverse effect of antineoplastic and immunosuppressive drugs, initial encounter
CPT/HCPCS: 36415; 70450; 71045; 74018; 78579; 80053; 81001; 82274; 82947; 83690; 83880; 84484; 85025; 85027; 85379; 85610; A9540; A9558; J1815; 99285-25; J7030

== ENCOUNTER → 2018-12-09 | Outpatient (CLI) | payer MEDICARE, OTHER ==
[~2018-12-09] MED LIST changes: +EVER0.5T PO; +METF500T16 PO; -METF500T5 PO; -OXYC-323 PO; +OXYC1TAB15 PO; +TACR1CAP4 PO
[2018-12-09 10:38] LABS: BASO % 1 % (0-3); EOS # 0.1 x10^3/uL (0.0-0.7); EOS % 2 % (0-3); HEMATOCRIT 37.2 % (39.0-53.0); LYMPH # 0.5 x10^3/uL (1.0-4.8); LYMPH % 8 % (24-48); MEAN CORPUSCULAR HEMOGLOBIN 28 pg (25-35); MEAN CORPUSCULAR HGB CONC 35 g/dL (31-37); MEAN CORPUSCULAR VOLUME 80 fL (79-100); MONO # 0.6 x10^3/uL (0.0-1.1); MONO % 10 % (0-9); NEUT # 4.7 x10^3uL (1.8-7.7); NEUT % 79 % (31-73); PLATELET COUNT 115 x10^3/uL (140-400); RED BLOOD COUNT 4.68 x10^6/uL (4.30-5.70); RED CELL DISTRIBUTION WIDTH 17.3 % (11.5-14.5); WHITE BLOOD COUNT 5.9 x10^3/uL (4.0-11.0)
[2018-12-09 10:46] LABS: CALCIUM 9.4 mg/dL (8.5-10.1); CREATININE 2.3 mg/dL (0.7-1.3); GFR 28.3; POTASSIUM 4.5 mmol/L (3.5-5.1)
== END | disposition home or self-care (01) ==
LOC: LAB 10:22
PROVIDERS: ATTEND Family Medicine
DX: J20.8 Acute bronchitis due to other specified organisms (principal); J00 Acute nasopharyngitis [common cold]; R11.2 Nausea with vomiting, unspecified; Z79.899 Other long term (current) drug therapy
CPT/HCPCS: 36415; 80048; 82977; 83690; 85025; 86140

== ENCOUNTER 2020-03-27 13:14 | Inpatient (IN) | payer MEDICARE, OTHER ==
[~2020-03-27] VITALS: Ht 182.9 cm; Wt 100.6 kg
[~2020-03-27 13:14] MED LIST changes: +LISI1TAB20 PO; -LISI1TAB7 PO; -TACR1CAP4 PO; +TACR1CAP5 PO
[2020-03-27] MEDS ORDERED: IV NORMAL SALINE 1,000ML 1,000 ML IV ONE (13:45)
--- NOTE | 2020-03-27 14:04 | EKG ---
[address] [address] Test Date: 2020-03-27 Test Time: 13:57:35 Pat Name: DEANNA GONZALEZ Department: Room: Gender: M [employer]: : 1950 Requested By: DEANNA FERNANDEZ Order Number: [id number] Reading MD: Measurements Intervals [place] Rate: 70 P: 90 IN: 180 QRS: -31 QRSD: 84 T: 46 QT: 408 QTc: 443 Interpretive Statements SINUS RHYTHM ABNORMAL LEFT AXIS DEVIATION LEFT ANTERIOR FASCICULAR BLOCK ABNORMAL ECG RI6.02 Compared to ECG 02/10/2017 12:32:26 Left anterior fascicular block now present Myocardial infarct finding no longer present
[2020-03-27 14:10] LABS: BASO % 1 % (0-3); EOS # 0.1 x10^3/uL (0.0-0.7); EOS % 2 % (0-3); HEMATOCRIT 34.9 % (39.0-53.0); HEMOGLOBIN 12.4 g/dL (13.0-17.5); LYMPH # 0.6 x10^3/uL (1.0-4.8); LYMPH % 17 % (24-48); MEAN CORPUSCULAR HEMOGLOBIN 30 pg (25-35); MEAN CORPUSCULAR HGB CONC 36 g/dL (31-37); MEAN CORPUSCULAR VOLUME 85 fL (79-100); MONO # 0.3 x10^3/uL (0.0-1.1); MONO % 7 % (0-9); NEUT # 2.9 x10^3uL (1.8-7.7); NEUT % 74 % (31-73); PLATELET COUNT 109 x10^3/uL (140-400); RED BLOOD COUNT 4.09 x10^6/uL (4.30-5.70); RED CELL DISTRIBUTION WIDTH 16.4 % (11.5-14.5); WHITE BLOOD COUNT 3.9 x10^3/uL (4.0-11.0)
--- NOTE | 2020-03-27 14:23 | PHYS DOC ---
Past History Past Medical History: Diabetes, GERD, High Cholesterol, Hypothyroid, Liver Disease, Renal Failure Past Surgical History: Pneumothorax, Other Additional Past Surgical Histo: Liver transplant Smoking: Non-smoker Alcohol Use: None Drug Use: None General Adult EDM: Chief Complaint: SHORTNESS OF BREATH HPI: HPI: 69 year old male with pmh of liver transplant on immunosuppressants presents with 2 day history of progressive shortness of breath and malaise. Reports associated headache, generalized weakness, fatigue, and cough. Reports cough is mostly dry but has some intermittent phlegm. Denies fever. Denies known sick contacts. Denies known exposure to COVID-19. Review of Systems: Review of Systems: Constitutional: Denies fever or chills; reports generalized malaise and fatigue Eyes: Denies redness or eye pain HENT: Denies nasal congestion or sore throat Respiratory: Reports cough and shortness of breath Cardiovascular: Denies chest pain or palpitations GI: Denies abdominal pain, nausea, or vomiting : Denies dysuria or hematuria Musculoskeletal: Denies back pain or joint pain Integument: Denies rash or skin lesions Neurologic: Reports headache and generalized weakness; denies sensory changes Complete systems were reviewed and found to be within normal limits, except as documented in this note. Current Medications: Current Meds: Current Medications Medications (Trade) Dose Ordered Sig/Hermann Start Time Stop Time Status Last Admin Dose Admin Sodium Chloride 1,000 ml @ 1,000 mls/hr 1X ONCE 03/27/20 13:45 03/27/20 14:44 03/27/20 14:16 1,000 MLS/HR Allergies: Allergies: Allergies Coded Allergies Type Severity Reaction Last Updated Verified Iodinated Contrast- Oral and IV Dye Allergy Intermediate 07/28/14 Yes chicken derived Allergy Intermediate 06/20/16 Yes iodine Allergy Intermediate 06/20/16 Yes shellfish derived Allergy Intermediate 08/19/15 Yes Physical Exam: PE: Constitutional: Well developed, well nourished, no acute distress, non-toxic a ppearance HENT: Normocephalic, atraumatic Eyes: PERRL, EOMI, conjunctiva normal, no discharge, no nystagmus Neck: Normal range of motion, no tenderness, supple, no meningeal signs Lungs & Thorax: No respiratory distress, equal chest rise and fall Abdomen: Soft, no tenderness, no guarding/rebound tenderness, abdominal girth noted Skin: Warm, dry, no erythema, no rash Extremities: No tenderness, ROM intact, no edema Neurologic: Alert and oriented X 3, normal motor function, normal sensory function, no focal deficits noted Psychologic: Affect normal, judgment normal Current Patient Data: Labs: Laboratory Tests Test 03/27/20 13:45 White Blood Count 3.9 x10^3/uL (4.0-11.0) L Red Blood Count 4.09 x10^6/uL (4.30-5.70) L Hemoglobin 12.4 g/dL (13.0-17.5) L Hematocrit 34.9 % (39.0-53.0) L Mean Corpuscular Volume 85 fL (79-100) Mean Corpuscular Hemoglobin 30 pg (25-35) Mean Corpuscular Hemoglobin Concent 36 g/dL (31-37) Red Cell Distribution Width 16.4 % (11.5-14.5) H Platelet Count 109 x10^3/uL (140-400) L Neutrophils (%) (Auto) 74 % (31-73) H Lymphocytes (%) (Auto) 17 % (24-48) L Monocytes (%) (Auto) 7 % (0-9) Eosinophils (%) (Auto) 2 % (0-3) Basophils (%) (Auto) 1 % (0-3) Neutrophils # (Auto) 2.9 x10^3uL (1.8-7.7) Lymphocytes # (Auto) 0.6 x10^3/uL (1.0-4.8) L Monocytes # (Auto) 0.3 x10^3/uL (0.0-1.1) Eosinophils # (Auto) 0.1 x10^3/uL (0.0-0.7) Basophils # (Auto) 0.0 x10^3/uL (0.0-0.2) EKG: EKG: @1357 NSR at 70bpm with some baseline artifact, NO ST elevation, QRS 84ms, QT/QTc 408/443ms, LAFB Radiology/Procedures: Radiology/Procedures: PROCEDURE: PORTABLE CHEST 1V PORTABLE CHEST 1V 03/27/2020 1:36 PM INDICATION: Shortness of breath COMPARISON: 04/07/2018 TECHNIQUE: Portable frontal view of the chest is provided. FINDINGS: The cardiomediastinal silhouette is within normal limits. Lungs are clear. There are no significant pleural effusions. There is no pulmonary vascular congestion. No pneumothorax. No suspicious osseous abnormality. IMPRESSION: There is no acute cardiopulmonary process. Electronically signed by: Rianna Garcia MD (03/27/2020 2:42 PM) [facility] Course & Med Decision Making: Course & Med Decision Making Pertinent Labs and Imaging studies reviewed. (See chart for details) Patient presents with progressive shortness of breath and malaise. Concern for viral syndrome. Afebrile upon arrival. Denies known exposure to COVID-19. COVID precautions in place due to reported symptoms. Patient immediately placed in negative pressure room. PPE utilized. EKG stable. Labs obtained and posted to chart. D-dimer and initial troponin WNL. UA without signs of infection. CXR clear. COVID testing pending. Hypomagnesemia addressed. Given immuno-compromised state, recommend to patient for further evaluation and treatment. Patient requiring admission for further evaluation and treatment. Discussed with Dr. Folr (PCP) who is in agreement with admission. Discussed findings and plan with patient, who acknowledges understanding and agreement. COVID-19 CRITERIA: The patient was evaluated during the global COVID-19 pandemic, and that diagnosis was suspected/considered upon their initial presentation. Their evaluation, treatment and testing was consistent with current guidelines for patients who present with complaints or symptoms that may be related to COVID-19. Dragkavon Disclaimer: Dragon Disclaimer: This electronic medical record was generated, in whole or in part, using a voice recognition dictation system. Departure Departure: Impression: Primary Impression: Shortness of breath Additional Impressions: Suspected 2019 novel coronavirus infection Hypomagnesemia Disposition: ADMITTED INPATIENT Admitting Physician: Booker Flor Condition: STABLE Referrals: BOOKER FLOR MD (PCP) Justification of Admission: Justification of Admission: Justification of Admission Dx: Yes Comments: SOA, hypomagnesemia, suspected COVID19 COVID-19 Assessment COVID-19 Patient Risks: Age 65 or older: Yes Sign of co-morbidity: Yes Exp to person + for COVID: No Exp to PUI: No Travel from affected area: No Lower respiratory symptoms: Yes Fever: Yes (subjective) PPE Use: Full PPE with N95 mask or PAPR: Yes FERNANDEZ,DEANNA R DO Mar 27, 2020 14:23
[2020-03-27 14:24] LABS: CALCIUM 8.8 mg/dL (8.5-10.1); CREATININE 1.7 mg/dL (0.7-1.3); GFR 39.9; POTASSIUM 4.2 mmol/L (3.5-5.1)
[2020-03-27 14:39] LABS: ALBUMIN 3.8 g/dL (3.4-5.0); ALBUMIN/GLOBULIN RATIO 1.3 (1.0-1.7); MAGNESIUM 1.4 mg/dL (1.8-2.4); TOTAL PROTEIN 6.7 g/dL (6.4-8.2)
--- NOTE | 2020-03-27 14:45 | RAD ---
PORTABLE CHEST 1V 03/27/2020 1:36 PM INDICATION: Shortness of breath COMPARISON: 04/07/2018 TECHNIQUE: Portable frontal view of the chest is provided. FINDINGS: The cardiomediastinal silhouette is within normal limits. Lungs are clear. There are no significant pleural effusions. There is no pulmonary vascular congestion. No pneumothorax. No suspicious osseous abnormality. IMPRESSION: There is no acute cardiopulmonary process. Electronically signed by: Rianna Garcia MD (03/27/2020 2:42 PM) [facility]
[2020-03-27 15:03] LABS: BACTERIA,URINE FEW /HPF (0-FEW); BILIRUBIN,URINE NEG (NEG); CLARITY,URINE CLEAR; COLOR,URINE YELLOW; GLUCOSE,URINE 250 mg/dL (NEG); NITRITE,URINE NEG (NEG); SQUAMOUS EPITHELIAL CELL,UR FEW /LPF; UROBILINOGEN,URINE 0.2 mg/dL (0.2 mg/dL)
[2020-03-27 15:04] LABS: GRANULAR CASTS,URINE OCC /HPF; HYALINE CASTS, URINE OCC /HPF
[2020-03-27] MEDS ORDERED: MAGNESIUM SULFATE 2GM 50 ML IV ONE (15:40)
[2020-03-27] MEDS ORDERED: DEXTROSE 50% 25 GM / 50ML DISP.SYRIN. IV PRN (16:15)
[2020-03-27] MEDS ORDERED: ONDANSETRON PF 4 MG/2 ML VIAL. IVP PRN (16:15)
[2020-03-27 18:00] VITALS: BP 159/76
[2020-03-27] MEDS: INSULIN LISPRO 300 UNITS/3 ML VIAL. SQ SCH (18:36)
[2020-03-27] MEDS ORDERED: oxyCODONE/APAP 5/325 1 TAB TABLET PO PRN (22:30)
[2020-03-27] MEDS ORDERED: TEMAZEPAM 7.5 MG CAPSULE PO PRN (22:30)
[2020-03-27 23:06] VITALS: BP 139/79
[2020-03-28 03:00] VITALS: BP 134/83
[2020-03-28] MEDS ORDERED: LEVOTHYROXINE 100 MCG TABLET PO SCH (06:00)
[2020-03-28 07:00] VITALS: BP 155/74
[2020-03-28] MEDS ORDERED: PANTOPRAZOLE 40 MG TABLET. PO SCH (07:30)
[2020-03-28] MEDS ORDERED: INSULIN GLARGINE SYRINGE. SQ SCH ×2 (07:30→08:45)
[2020-03-28] MEDS ORDERED: NON FORMULARY ITEM (Insulin Aspart (Novolog Flexpen) 1 UNIT) SQ SCH (07:30)
[2020-03-28] MEDS: INSULIN LISPRO 300 UNITS/3 ML VIAL. SQ SCH ×3 (08:24→12:15)
[2020-03-28] MEDS ORDERED: rifAXIMin 550 MG TABLET PO SCH (09:00)
[2020-03-28] MEDS ORDERED: FERROUS SULFATE 325 MG TABLET. PO SCH (09:00)
[2020-03-28] MEDS ORDERED: metFORMIN 500 MG TABLET PO SCH (09:00)
[2020-03-28] MEDS ORDERED: TACROLIMUS 1 MG CAPSULE PO SCH (09:00)
[2020-03-28] MEDS ORDERED: EVEROLIMUS PO SCH (09:00)
[2020-03-28] MEDS ORDERED: SPIRONOLACTONE 25 MG TABLET PO SCH (09:00)
[2020-03-28] MEDS ORDERED: FUROSEMIDE 40 MG TABLET PO SCH (09:00)
[2020-03-28] MEDS ORDERED: oxyCODONE ER 10 MG TAB.ER.12H PO SCH (09:00)
[2020-03-28] MEDS ORDERED: AZIT250T PO (11:37)
--- NOTE | 2020-03-28 12:11 | HP ---
ADMIT DATE: 03/27/2020 HISTORY OF PRESENT ILLNESS: A 69-year-old gentleman with history of being immunosuppressed secondary to a liver transplant. The patient has had a 2-3 day history of increased shortness of breath, coughing, and malaise, generalized weakness, mild nausea at first, but no chest pain, no vomiting. The patient has a dry cough. Denies any known contacts. The patient was admitted for evaluation of his acute respiratory distress. PAST MEDICAL HISTORY: Diabetes, GERD, hypercholesterolemia, hypothyroidism, liver disease, renal failure, liver transplant in 2017, kidney stones, left inguinal hernia, ACL repair, L4-L5 laminectomy, bilateral knee replacement; PTSD years ago, currently no problems. He has a PICC line, reading glasses, chronic anemia, elevated ferritin, skin cancer, blood transfusions, positive influenza vaccination up-to-date. Father and sister had some form of cancer. FAMILY HISTORY: Father had diabetes, mother had cardiovascular disease. ALLERGIES: IODINE, ORAL AND IV DYE, CHICKEN DERIVED IODINE, SHELLFISH DERIVED IODINE. SOCIAL HISTORY: The patient presently denies any smoking, alcohol or drug use. MEDICATIONS: The patient's medications were reviewed and reconciled in the chart including Xifaxan 550 mg b.i.d., ferrous sulfate, Lipitor 40, spironolactone 25 b.i.d., oxycodone extended release 10 mg t.i.d. p.r.n., Percocet 1 tablet q.i.d. p.r.n., temazepam 15, furosemide 40, Prilosec 20, metformin 500, insulin, levothyroxine 150 mcg, Zortress 4 tablets p.o. b.i.d. for his liver transplant. REVIEW OF SYSTEMS: As stated in the HPI. Denies any headaches, visual change, blurred vision or double vision. Does have the shortness of breath and dry cough. Denies chest pain per se. Denies abdominal pain. Does have a small ventral hernia over the excision line where they did the liver transplant, which has healed up very nicely, he has no pain there. Positive bowel sounds. Otherwise, the abdomen was soft. There was no rebounding or guarding. EXTREMITIES: No clubbing, cyanosis or edema. NEUROLOGIC: The patient was alert and oriented. Speech fluent, spontaneous, appropriate. Cranial nerves 2-12 grossly intact. LABORATORY DATA: The patient's white count was 3.9, hemoglobin 12.4 and 34. Chemistries: 140, 4.2, 27, and 1.7. Glucose 174. Calcium 8.8, magnesium low at 1.4, AST 57, ALT of 115. PHYSICAL EXAMINATION: GENERAL: A pleasant white male, in no apparent distress. Some shortness of breath. VITAL SIGNS: Blood pressure 155/74, respiratory rate 18, pulse 56, temperature 96.5, oxygen saturation 94%. HEENT: The patient's head was atraumatic and normocephalic. No jaundice noted. Mouth and throat: Normal. NECK: Supple. LUNGS: Diminished, but clear throughout. CARDIOVASCULAR: Regular sinus rhythm, S1, S2, without murmur, rub, thrill, or extra heart sounds. ABDOMEN: Soft, nontender. Abdominal hernias noted. EXTREMITIES: No clubbing, cyanosis, nor edema. NEUROLOGIC: Intact. IMPRESSION AND PLAN: Acute respiratory distress, history of immunosuppression 3 years ago from liver transplant, on immunosuppressive therapy, type 2 diabetes, elevated liver enzymes, chronic kidney disease, stage 3. The patient was admitted, aggressive pulmonary toilet and make further evaluation. He made good progress and will be monitored carefully for his electrolytes and elevated liver enzymes. BOOKER PEÑA MD DR: KENDAL/jordyn JOB#: [id number] / [id number]
[2020-03-28] MEDS ORDERED: ATORVASTATIN CALCIUM 20 MG TABLET PO SCH (21:00)
== END 2020-03-28 12:13 | disposition home or self-care (01) | DRG 204 ==
LOC: ER 13:14 → ICU 15:44
PROVIDERS: ADMIT Family Medicine; ATTEND Family Medicine
DX: R06.03 Acute respiratory distress (principal); Z94.4 Liver transplant status; E03.9 Hypothyroidism, unspecified; E11.22 Type 2 diabetes mellitus with diabetic chronic kidney disease; E78.00 Pure hypercholesterolemia, unspecified; E83.42 Hypomagnesemia; F43.10 Post-traumatic stress disorder, unspecified; N18.3 Chronic kidney disease, stage 3 (moderate); Z82.49 Family history of ischemic heart disease and other diseases of the circulatory system; Z83.3 Family history of diabetes mellitus; Z85.828 Personal history of other malignant neoplasm of skin; Z87.442 Personal history of urinary calculi; Z96.653 Presence of artificial knee joint, bilateral; K21.9 Gastro-esophageal reflux disease without esophagitis; Z79.899 Other long term (current) drug therapy; Z20.828 Contact with and (suspected) exposure to other viral communicable diseases; Z88.8 Allergy status to other drugs, medicaments and biological substances; Z91.013 Allergy to seafood
CPT/HCPCS: 36415; 71045; 80053; 81001; 82553; 82728; 82947; 83605; 83615; 83690; 83735; 83880; 84484; 85025; 85379; 85610; 85730; 93005; 96365; J1815; J3475; J7507; 99285-25; J7030; U0003-CS

== ENCOUNTER 2020-09-18 23:16 | Emergency (ER) | payer MEDICARE, OTHER ==
[~2020-09-18] VITALS: Ht 182.9 cm; Wt 105.5 kg
[~2020-09-18 23:16] MED LIST changes: +AZIT250T PO; -NADO20TA PO; +NADO20TA2 PO; -VANC1.5P20 IV; +[UNRECOGNIZED DRUG - CODE] IV
--- NOTE | 2020-09-18 23:30 | PHYS DOC ---
Past History Past Medical History: Diabetes, GERD, High Cholesterol, Hypothyroid, Liver Disease, Renal Failure Past Surgical History: Pneumothorax, Other Additional Past Surgical Histo: Liver transplant Smoking: Non-smoker Alcohol Use: None Drug Use: None Adult General Chief Complaint Chief Complaint: MECHANICAL FALL HPI HPI Patient is a 69-year-old male who presents after a fall. 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 States he came down on his left elbow and left knee. Is endorsing pain in his left knee and hip, 6 out of 10, dull and achy in nature. Endorsing pain in his left elbow, 7 out of 10, dull and achy in nature and 4 out of 10 in his left shoulder, dull and achy in nature. Denies any head injuries, syncope, chest pain, shortness of breath, abdominal pain, nausea, vomiting. Does endorse an abrasion on left forearm but stated he is up-to-date on tetanus as he got it last year. Review of Systems Review of Systems Review of systems otherwise unremarkable outside of HPI Allergies Allergies Allergies Coded Allergies Type Severity Reaction Last Updated Verified Iodinated Contrast Media Allergy Intermediate 07/28/14 Yes chicken derived Allergy Intermediate 06/20/16 Yes iodine Allergy Intermediate 06/20/16 Yes shellfish derived Allergy Intermediate 08/19/15 Yes Physical Exam Physical Exam Constitutional: Well developed, well nourished, no acute distress, non-toxic appearance. [] HENT: Normocephalic, atraumatic, bilateral external ears normal, oropharynx moist, no oral exudates, nose normal. [] Eyes: PERRLA, EOMI, conjunctiva normal, no discharge. [] Neck: Normal range of motion, no tenderness, supple, no stridor. [] Cardiovascular:Heart rate regular rhythm, no murmur [] Lungs & Thorax: Bilateral breath sounds clear to auscultation [] Abdomen: Bowel sounds normal, soft, no tenderness, no masses, no pulsatile masses. [] Skin: Warm, dry, no erythema, no rash. [] Back: No tenderness, no CVA tenderness. [] Extremities: Patient with left knee pain, generalized and with range of motion. Left hip pain with range of motion. Left elbow pain, and swelling with abrasion. Left shoulder pain with range of motion. Otherwise neurovascularly intact. Neurologic: Alert and oriented X 3, normal motor function, normal sensory function, no focal deficits noted. [] Psychologic: Affect normal, judgement normal, mood normal. [] EKG EKG [] Radiology/Procedures Radiology/Procedures No new acute osseous abnormalities and left shoulder, left elbow, hips bilaterally her left knee. See imaging reports. [] Heart Score Risk Factors: Risk Factors: DM, Current or recent (<one month) smoker, HTN, HLP, family history of CAD, obesity. Risk Scores: Risk Factors: DM, Current or recent (<one month) smoker, HTN, HLP, family hist ory of CAD, obesity. Course & Med Decision Making Course & Med Decision Making Patient is a 69-year-old male who presents after tripping over a phone cord and falling in his house on a flat surface, endorsing left shoulder/elbow/knee and hip pain Vital signs not concerning. Physical exam noted above. Patient denied need for pain medication at this time. Imaging with no new acute osseous abnormalities. Discussed wound management of abrasion including keeping it clean, dry and bandaged. Patient up-to-date on tetanus. Advised to follow-up first thing Sunday morning with his primary care physician to update on ED visit and set up a post ER follow-up visit. Advised on home pain regimen. Discussed keeping his home free of things are contributing. Advised, to the ED with new or concerning symptoms. Patient grateful, verbalized understanding and agreed with plan of discharge. [] Dragon Disclaimer Dragon Disclaimer This electronic medical record was generated, in whole or in part, using a voice recognition dictation system. Departure Departure: Referrals: BOOKER PEÑA MD (PCP) BK MALCOLM MD Sep 18, 2020 23:30
[2020-09-18 23:31] VITALS: BP 157/88
--- NOTE | 2020-09-19 00:48 | RAD ---
EXAM: AP pelvis, AP and lateral views of both hips DATE: 09/18/2020 11:29 PM INDICATION: Reason: trauma / Spl. Instructions: / History: COMPARISON: No Prior FINDINGS: No evidence of acute fracture or dislocation. No pubic symphysis or SI joint diastases. Decreased abd ominal density. Hip joint and SI joints are preserved. Lucent lesion within the left intertrochanteri c region without aggressive characteristics. IMPRESSION: 1. Within the constraints of osteopenia, no acute fracture or dislocation. If there is persistent cl inical concern for fracture, cross-sectional imaging is recommended. 2. Lucent lesion within the left intertrochanteric region without aggressive imaging characteristics . Electronically signed by: Andrea Ann MD (09/19/2020 12:39 AM) PAUL[facility]
--- NOTE | 2020-09-19 00:48 | RAD ---
EXAM: 3 Views Left Shoulder DATE: 09/18/2020 11:29 PM INDICATION: Reason: trauma / Spl. Instructions: / History: COMPARISON: No Prior FINDINGS: There is no evidence for acute fracture or dislocation. AC joint is congruent. Small AC joint osteoph ytes are seen. Glenohumeral joint degenerative changes are seen. Humeral head is not high riding. IMPRESSION: 1. No acute fracture or dislocation. 2. Left glenohumeral and AC joint DJD. Electronically signed by: Andrea Ann MD (09/19/2020 12:38 AM) PAULA
--- NOTE | 2020-09-19 01:10 | RAD ---
EXAM: 2 views of the left elbow DATE: 09/18/2020 11:40 PM INDICATION: Reason: trauma / Spl. Instructions: / History: COMPARISON: No Prior FINDINGS: No elbow joint effusion. No acute fracture or dislocation. Glenohumeral degenerative changes are seen . Olecranon enthesopathy. No significant soft tissue swelling. IMPRESSION: 1. No evidence of acute fracture or dislocation. 2. Degenerative changes of the upper abdomen. 3. Olecranon enthesopathy. Electronically signed by: Andrea Ann MD (09/19/2020 1:07 AM) PAULA
--- NOTE | 2020-09-19 01:10 | RAD ---
EXAM: 3 views left knee DATE: 09/18/2020 11:29 PM INDICATION: Reason: trauma / Spl. Instructions: / History: COMPARISON: No Prior FINDINGS: Changes of left total knee arthroplasty, in good alignment without definite hardware complication or fracture. No knee joint effusion. Decreased bone mineral density. IMPRESSION: Changes of left total knee arthroplasty, in good alignment without definite hardware complication or fracture. Electronically signed by: Andrea Ann MD (09/19/2020 1:07 AM) PAULA
== END 2020-09-19 01:28 | disposition home or self-care (01) ==
LOC: ER 23:16
DX: S50.02XA Contusion of left elbow, initial encounter (principal); M25.552 Pain in left hip; M25.512 Pain in left shoulder; M25.562 Pain in left knee; E11.9 Type 2 diabetes mellitus without complications; K21.9 Gastro-esophageal reflux disease without esophagitis; E78.00 Pure hypercholesterolemia, unspecified; E03.9 Hypothyroidism, unspecified; N19 Unspecified kidney failure; K76.9 Liver disease, unspecified; Z98.890 Other specified postprocedural states; Z91.013 Allergy to seafood; Z91.041 Radiographic dye allergy status; Z91.018 Allergy to other foods; W18.09XA Striking against other object with subsequent fall, initial encounter; Y93.89 Activity, other specified; Y92.89 Other specified places as the place of occurrence of the external cause; Y99.8 Other external cause status
CPT/HCPCS: 73030; 73070; 73521; 73562; 99284